=== PATIENT | female | born 1935 | race Caucasian/White ===

== ENCOUNTER 2016-06-09 07:23 | Day surgery (SDC) | payer MEDICARE ==
[~2016-06-09 07:23] MED LIST: IV START KIT ONE; LACTATED RINGERS 1,000 ML IV SCH; LACTATED RINGERS 1,000 ML ONE
[2016-06-09] MEDS ORDERED: MIDAZOLAM HCL 1 MG/ML 2ML VIAL ONE (09:16)
[2016-06-09] MEDS ORDERED: PROPOFOL 20 ML IV ONE (09:16)
[2016-06-09] MEDS ORDERED: FENTANYL 5 ML ONE (09:16)
[2016-06-09 14:51] LABS: HELICOBACTER PYLORII DETECTION NEGATIVE (NEGATIVE)
--- NOTE | 2016-06-13 12:51 | SURGPATH ---
[facility] [address] [place] [id number] Patient Name: ESTEBAN VENEGAS MR#: [id number] : 1935 Gender: F Specimen #: [id number] Collected: 06/09/2016 Received: 06/10/2016 Reported: 06/13/2016 Submitting Phys: LUKE VELÁZQUEZ Copy To Phys: [facility] DENISSE, FARZANA GRACE Clinical History / Pre-Operative Diagnosis: Iron deficiency anemia; blood loss; gastritis; diverticulitis; rule out gastritis Specimen Source / Surgical Procedure Performed: Antral biopsy Interpretation: STOMACH, ANTRUM, BIOPSY: - REACTIVE GASTROPATHY - NO HELICOBACTER ORGANISMS SEEN ON ROUTINE STAIN Electronically Signed Out Theresa Lowe M.D. Gross Description: The specimen is received in a formalin filled container labeled with the patient's name and "antral biopsy". Two melton biopsies are 0.3 and 0.5 cm. Totally embedded in one cassette. Cristofer Matute, PLuisALuis Microscopic Description: Sections show gastric antral and oxyntic mucosa with overall intact architecture. Minimal chronic inflammation is seen without active inflammation. No Helicobacter organisms are seen on routine stain. No dysplasia or malignancy is seen. Minimal reactive gastropathy is seen with reactive foveolar hyperplasia. 1: 42611 K31.9
== END 2016-06-09 10:55 ==
LOC: SDC 07:23
PROVIDERS: ATTEND Internal Medicine Gastroenterology
PROC: 0DJD8ZZ Inspection of Lower Intestinal Tract, Via Natural or Artificial Opening Endoscopic (ICD-10-PCS; principal; 2016-06-09)
PROC: 0DB68ZX Excision of Stomach, Via Natural or Artificial Opening Endoscopic, Diagnostic (ICD-10-PCS; principal; 2016-06-09)
DX: D64.9 Anemia, unspecified (principal); K25.9 Gastric ulcer, unspecified as acute or chronic, without hemorrhage or perforation; K57.30 Diverticulosis of large intestine without perforation or abscess without bleeding; K92.1 Melena; I10 Essential (primary) hypertension; G20 Parkinson's disease; E78.5 Hyperlipidemia, unspecified; E55.9 Vitamin D deficiency, unspecified